=== PATIENT | female | born 1925 | race Caucasian/White ===

== ENCOUNTER 2017-05-13 16:39 | Inpatient (IN) | payer OTHER, BC ==
[~2017-05-13] VITALS: Ht 157.5 cm; Wt 43.7 kg
[~2017-05-13 16:39] MED LIST: IBAN150T7 PO; LEVO50TA6 PO; MULT-506 PO; RANI150T3 PO; SYMIN/8045 INH; VTMD PO
[2017-05-13] MEDS ORDERED: ALBUT/IPRATROP 3MG/0.5MG NEB 3 ML VIAL INH STA (17:14)
[2017-05-13] MEDS ORDERED: SODIUM CHLORIDE 0.9% 1000ML 1,000 ML IV STA ×2 (17:14→19:00)
--- NOTE | 2017-05-13 17:15 | EMERGENCY ROOM VISIT NOTE ---
History Report prepared by Avery: Jenna Torrez Under the Supervision of: Dr. Brigid Hall D.O. First contact with patient: 17:03 Chief Complaint: RESPIRATORY DISTRESS Stated Complaint: RESPIRATORY DISTRESS/ [facility] Nursing Triage Summary: Pt. arrived to exam room via EMS transport with reports of diagnosis of pneumonia, hx of COPD. Pt. with wet cough, fever, and low oxygen level at [facility]. History of Present Illness The patient is a 89 year old female who presents to the Emergency Room with complaints of sudden respiratory distress beginning shortly prior to arrival. Per nursing staff, the patient had a duoneb on route. The patient states that she uses an inhaler as needed. She also reports having a cough but that it is not productive. Pt denies headache, change in vision, fevers, chest pain, nausea , vomiting, diarrhea, pain with urination, and melena. The patient has a history of COPD. Review of paperwork from [facility]: Patient had a temperature of 101.6, was given Tylenol and started on 500 mg of Levaquin. She was also given nebulizer treatments. Also states she has a hx of congestive heart failure. Source of History: patient, nursing staff Onset: shortly prior to arrival Position: other (global) Quality: other (respiratory distress) Timing: other (sudden) Associated Symptoms: + cough, No fevers, No chest pain, No nausea, No vomiting, No melena, No diarrhea Review of Systems See HPI for pertinent positives & negatives. A total of 10 systems reviewed and were otherwise negative. Past Medical & Surgical Medical Problems: (1) COPD (chronic obstructive pulmonary disease) (2) Hyperlipidemia (3) Hypothyroidism (4) Osteoporosis Family History No significant family history Social History Smoking Status: Former Smoker Alcohol Use: none Marital Status: Housing Status: lives with significant other Occupation Status: retired Current/Historical Medications Scheduled Budesonide/Formoterol Fumarate (Symbicort 80/4.5 Inhaler), 2 PUFFS INH BID Cholecalciferol (Vitamin D3), 2,000 INTER.UNIT PO QAM Glucosamine Sulfate (Glucosamine), 500 MG PO QAM Ibandronate Sodium (Ibandronate Sodium), 150 MG PO MONTHLY Levofloxacin (Levaquin), 500 MG PO DAILY Levothyroxine Sodium (Levothyroxine Sodium), 50 MCG PO DAILY Multivitamin (Multivitamin), 1 TAB PO DAILY Scheduled PRN Acetaminophen (Tylenol), 650 MG PO Q4H PRN for Pain or Fever Albuterol Sulf (Proventil 0.083% 2.5MG/3ML), 2.5 MG INH QID PRN for PNEUMONIA Dextromethorphan-Guaifenesin ([facility] Chest Congestion Plus 5-100 mg/5Ml), 5 ML PO BID PRN for Cough Allergies Coded Allergies: Chocolate (Verified Allergy, Mild, 08/30/14) Latex1 -Allergic Contact Dermititis (Verified Allergy, Mild, 08/30/14) Peanut (Verified Allergy, Mild, 08/30/14) Doxycycline (Verified Allergy, Unknown, UNKNOWN, 08/30/14) Adhesives (Verified Adverse Reaction, Intermediate, RASH, 08/30/14) Alendronate (Verified Adverse Reaction, Intermediate, DIARRHEA, 08/30/14) Physical Exam Vital Signs Date Time Temp Pulse Resp B/P (MAP) Pulse Ox O2 Delivery O2 Flow Rate FiO2 05/13/17 20:00 96 22 103/54 96 Nasal Cannula 3.0 05/13/17 19:44 93 20 113/58 95 Nasal Cannula 2.0 05/13/17 19:09 93 26 93/59 94 Nasal Cannula 3.0 05/13/17 18:09 100 05/13/17 18:00 89 23 107/58 95 Nasal Cannula 3.0 05/13/17 16:40 95 Nasal Cannula 3.0 05/13/17 16:40 95 Nasal Cannula 3.0 05/13/17 16:40 36.9 108 29 115/66 95 Nasal Cannula 3.0 Physical Exam GENERAL: alert, well appearing, well nourished, no distress, non-toxic EYE EXAM: normal conjunctiva, PERRL and EOM's grossly intact OROPHARYNX: no exudate, no erythema, lips, buccal mucosa, and tongue normal and mucous membranes are moist NECK: supple, no nuchal rigidity, no adenopathy, non-tender LUNGS: Decreased breath sounds. Expiratory wheezes bilaterally at posterior bases. Normal chest wall mechanics HEART: Tachycardic, regular rhythm. no murmurs, S1 normal and S2 normal ABDOMEN: abdomen soft, non-tender, normo-active bowel sounds, no masses, no rebound or guarding. BACK: Back is symmetrical on inspection and there is no deformity, no midline tenderness, no CVA tenderness. SKIN: no rashes and no bruising UPPER EXTREMITIES: upper extremities are grossly normal. LOWER EXTREMITIES: No pitting edema. NEURO EXAM: Pleasantly confused, cranial nerves II-XII grossly intact, normal speech, no gross weakness of arms, no gross weakness of legs. Medical Decision & Procedures ER Provider Diagnostic Interpretation: Radiology results have been interpreted by the radiologist and reviewed by me. CHEST ONE VIEW PORTABLE HISTORY: 89 years-old Female sob acute shortness of breath COMPARISON: Chest CT 08/30/2014 and chest radiograph 08/30/2014 TECHNIQUE: Portable upright AP view of the chest FINDINGS: Cardiac silhouette is within normal limits. There is atherosclerosis of the aorta. No pneumothorax or pleural effusion. Subsegmental atelectasis or scarring involves the left lung base. Emphysema with hyperinflation redemonstrated. Mild biapical interstitial scarring. The bones are grossly intact. IMPRESSION: Emphysema and mild subsegmental left basilar atelectasis or scarring without acute cardiopulmonary process. The above report was generated using voice recognition software. It may contain grammatical, syntax or spelling errors. Electronically signed by: Satya Viera M.D. 05/13/2017 5:28 PM Dictated Date/Time: 05/13/2017 5:26 PM (CHEST FOR PE) ANGIO WITH CT DOSE: 251.97 mGy.cm HISTORY: 89 years-old Female presents with acute shortness of breath. History of emphysema TECHNIQUE: Multiple CTA images of the chest were obtained after the intravenous administration of 108 mL Optiray 320 Coronal and sagittal MIPS were obtained from the axial data set and were submitted for review. A dose lowering technique was utilized adhering to the principles of ALARA. COMPARISON: CTA chest 08/30/2014. FINDINGS: Study is moderately limited secondary to respiratory motion. CTA: Heart is normal in size without pericardial effusion. Moderate atherosclerotic plaquing of the thoracic aorta is noted with imaged great vessels patent. No aortic dissection or aneurysm identified. There is dilation of the main pulmonary artery, 3.2 cm suggesting pulmonary arterial hypertension. There is suboptimal visualization of the distal segmental and subsegmental branches secondary to respiratory motion. No central pulmonary embolus identified. There is reflux of contrast into the IVC and hepatic veins, likely secondary to technique or alternatively secondary to elevated right heart pressures. CT CHEST: Thyroid is homogeneous. No pathologic adenopathy. Trace left pleural effusion. Moderate to severe upper lobe predominant centrilobular emphysematous changes are present with areas of parenchymal scarring. Groundglass and consolidative opacities throughout the left lower lobe with associated moderate bronchial wall thickening suggests bronchopneumonia. Mild bronchial wall thickening is also seen at the level of the right lung base. Soft tissue fullness with ill-defined margins is noted involving the left hilum, 1.3 x 0.9 cm seen on image 159 of series 5 which appears new from prior study 08/30/2014. Imaged upper abdominal structures demonstrate no acute abnormality. Soft tissues are unremarkable. Bones are moderately demineralized. IMPRESSION: 1. Limited study secondary to respiratory motion as above. No evidence of acute aortic pathology or evidence of pulmonary thromboembolic disease. 2. Patchy consolidative and groundglass opacities of the left lower lobe with associated moderate left lower lobe bronchial wall thickening suggests bronchitis with bronchopneumonia and small left parapneumonic effusion. Less extensive bronchial wall thickening is seen within the right lung. 3. Moderate to severe upper lung zone predominant centrilobular emphysema. 4. Ill-defined soft tissue prominence of the left hilum as above is favored to reflect inflammatory changes secondary to the patient's bronchitis. Attention at follow-up recommended to document resolution as a small developing mass could have a similar appearance. This could also be correlated with bronchoscopy. 5. Suggested pulmonary arterial hypertension. The above report was generated using voice recognition software. It may contain grammatical, syntax or spelling errors. Electronically signed by: Satya Viera M.D. 05/13/2017 7:38 PM Dictated Date/Time: 05/13/2017 7:28 PM Laboratory Results 05/13/17 17:50 Red Blood Count 4.08, Mean Corpuscular Volume 95.3, Mean Corpuscular Hemoglobin 32.4, Mean Corpuscular Hemoglobin Concent 33.9, Mean Platelet Volume 10.1, Neutrophils (%) (Auto) 71.4, Lymphocytes (%) (Auto) 12.9, Monocytes (%) (Auto) 15.0, Eosinophils (%) (Auto) 0.1, Basophils (%) (Auto) 0.4, Neutrophils # (Auto ) 6.85, Lymphocytes # (Auto) 1.24, Monocytes # (Auto) 1.44, Eosinophils # (Auto ) 0.01, Basophils # (Auto) 0.04 05/13/17 17:50 Test 05/13/17 17:50 05/13/17 17:58 White Blood Count 9.60 K/uL (4.8-10.8) Red Blood Count 4.08 M/uL (4.2-5.4) Hemoglobin 13.2 g/dL (12.0-16.0) Hematocrit 38.9 % (37-47) Mean Corpuscular Volume 95.3 fL (80-100) Mean Corpuscular Hemoglobin 32.4 pg (25-34) Mean Corpuscular Hemoglobin Concent 33.9 g/dl (32-36) Platelet Count 194 K/uL (130-400) Mean Platelet Volume 10.1 fL (7.4-10.4) Neutrophils (%) (Auto) 71.4 % Lymphocytes (%) (Auto) 12.9 % Monocytes (%) (Auto) 15.0 % Eosinophils (%) (Auto) 0.1 % Basophils (%) (Auto) 0.4 % Neutrophils # (Auto) 6.85 K/uL (1.4-6.5) Lymphocytes # (Auto) 1.24 K/uL (1.2-3.4) Monocytes # (Auto) 1.44 K/uL (0.11-0.59) Eosinophils # (Auto) 0.01 K/uL (0-0.5) Basophils # (Auto) 0.04 K/uL (0-0.2) RDW Standard Deviation 50.0 fL (36.4-46.3) RDW Coefficient of Variation 14.2 % (11.5-14.5) Immature Granulocyte % (Auto) 0.2 % Immature Granulocyte # (Auto) 0.02 K/uL (0.00-0.02) Prothrombin Time 11.3 SECONDS (9.0-12.0) Prothromb Time International Ratio 1.1 (0.9-1.1) Activated Partial Thromboplast Time 32.2 SECONDS (21.0-31.0) Partial Thromboplastin Ratio 1.2 Anion Gap 7.0 mmol/L (3-11) Est Creatinine Clear Calc Drug Dose 37.8 ml/min Estimated GFR () 87.5 Estimated GFR (Non- 75.5 BUN/Creatinine Ratio 24.4 (10-20) Calcium Level 8.4 mg/dl (8.5-10.1) Magnesium Level 2.1 mg/dl (1.8-2.4) Total Bilirubin 0.3 mg/dl (0.2-1) Aspartate Amino Transf (AST/SGOT) 33 U/L (15-37) Alanine Aminotransferase (ALT/SGPT) 26 U/L (12-78) Alkaline Phosphatase 51 U/L (45-117) Pro-B-Type Natriuretic Peptide 5968 pg/ml (0-1800) Total Protein 6.2 gm/dl (6.4-8.2) Albumin 2.7 gm/dl (3.4-5.0) Globulin 3.5 gm/dl (2.5-4.0) Albumin/Globulin Ratio 0.8 (0.9-2) Thyroid Stimulating Hormone (TSH) 0.938 uIu/ml (0.300-4.500) Bedside Lactic Acid Venous 1.09 mmol/L (0.90-1.70) Laboratory results per my review. Medications Administered Medications (Trade) Dose Ordered Sig/Matthew Route Start Time Stop Time Status Last Admin Dose Admin Albuterol/ Ipratropium (Duoneb) 3 ml NOW STAT INH 05/13/17 17:14 05/13/17 17:18 DC 05/13/17 18:02 3 ML Sodium Chloride 1,000 ml @ 999 mls/hr Q1H1M STAT IV 05/13/17 17:14 05/13/17 18:14 DC 05/13/17 18:02 999 MLS/HR Methylprednisolone Sodium Succinate (Solu-Medrol IV) 125 mg NOW STAT IV 05/13/17 17:24 05/13/17 17:26 DC 05/13/17 18:02 125 MG Sodium Chloride 1,000 ml @ 250 mls/hr Q4H STAT IV 05/13/17 19:00 05/13/17 22:59 DC 05/13/17 19:39 250 MLS/HR Aspirin (Ecotrin Tab) 325 mg NOW STAT PO 05/13/17 19:03 05/13/17 19:04 DC 05/13/17 19:39 325 MG Vancomycin HCl (Vancomycin 1gm/ 270ml Nss) 1 gm NOW STAT IV 05/13/17 19:48 05/13/17 19:50 DC 05/13/17 20:20 1 GM Cefepime HCl 2000 mg/Dextrose 122.6 ml @ 200 mls/hr NOW STAT IV 05/13/17 19:48 05/13/17 20:24 DC 05/13/17 20:20 200 MLS/HR ECG Indication: SOB/dyspnea Rate (beats per minute): 103 Rhythm: sinus tachycardia Findings: LBBB, no acute ischemic change, other (normal axis) ED Course 1706: The patient was evaluated in room B10. A complete history and physical exam was performed. 1713: Ordered Sodium Chloride 1,000 ml @ 999 mls/hr IV, Duoneb 3 ml INH. 1899: Ordered Sodium Chloride 1,000 ml @ 250 mls/hr IV. 1902: Ordered Aspirin 325 mg PO. 1904: The patient has an elevated troponin. 1947: Ordered Cefepime HCl 2,000 ml/Dextrose 122.6 ml @ 200 mls/hr IV, Vancomycin HCl 1 gm IV. 1999: Upon reevaluation, the patient is resting. I discussed the findings and the treatment plan with the patient. She expresses agreement and understanding. I spoke with Dr. Gross of the [facility] Hospitalist Service. She will be evaluated for further management. Medical Decision Differential diagnosis: Etiologies such as infections, reactive airway disease, pneumonia, pneumothorax , COPD, CHF, cardiac ischemia, pulmonary embolism, musculoskeletal, gastrointestinal, as well as others were entertained. Pt likely with evolving sepsis due to pneumonia. Doubt primary ACS, likely elevated trop due to stress of tachycardia or infection. LBBB old, no evidence for Scar[place]ossa criteria. Pt with no complaints of sob or CP here. Pt covered for health care associated pneumonia given [place] residence. Likely worsening COPD also. Pt initially hypotensive but responded to IVF and held BP after that. Given 2 L IVF. Pt placed on home oxygen as initially hypoxic for EMS. Concern over cognitive status of pt as [place] reported to EMS hx of mild dementia, no other family at bedside. Medication Reconcilliation Current Medication List: was personally reviewed by me Blood Pressure Screening Patient's blood pressure: Low blood pressure Consults Time Called: 1944 Consulting Physician: Dr. Gross-[facility] Returned Call: 1999 I reviewed the patient's case with Dr. Gross. He will evaluate the patient for further management. Impression Primary Impression: Pneumonia Additional Impressions: Sepsis Elevated troponin Critical Care I have personally spent 35 minutes of critical care time in the direct management of this patient. This includes bedside care, interpretation of diagnostic studies, and testing, discussion with consultants, patient, and family members, and other required patient management activities. This 35 minutes is in excess of all separately billable procedures. Scribe Attestation The scribe's documentation has been prepared under my direction and personally reviewed by me in its entirety. I confirm that the note above accurately reflects all work, treatment, procedures, and medical decision making performed by me. Departure Information Dispostion Being Evaluated By Hospitalist Referrals Tyler Lee (PCP) Patient Instructions Asthma - [facility], COPD - [facility], Croup - [facility], My [facility] Health Problem Qualifiers Primary Impression: Pneumonia Pneumonia type: due to unspecified organism Laterality: left Lung location : lower lobe of lung Qualified Codes: J18.1 - Lobar pneumonia, unspecified organism Additional Impressions: Sepsis Sepsis type: sepsis due to unspecified organism Qualified Codes: A41.9 - Sepsis, unspecified organism
[2017-05-13] MEDS ORDERED: GLUC500C4 PO (17:19)
[2017-05-13] MEDS ORDERED: ACET-1311 PO (17:19)
[2017-05-13] MEDS ORDERED: CHOL2000 PO (17:19)
[2017-05-13] MEDS ORDERED: [UNRECOGNIZED DRUG - CODE] PO (17:19)
[2017-05-13] MEDS ORDERED: ALBINS/ INH (17:19)
[2017-05-13] MEDS ORDERED: LEVO-366 PO (17:19)
[2017-05-13] MEDS ORDERED: METHYLPREDNISOLONE 125 MG VIAL IV STA (17:24)
--- NOTE | 2017-05-13 17:29 | DIAGNOSTIC IMAGING REPORT ---
CHEST ONE VIEW PORTABLE HISTORY: 89 years-old Female sob acute shortness of breath COMPARISON: Chest CT 08/30/2014 and chest radiograph 08/30/2014 TECHNIQUE: Portable upright AP view of the chest FINDINGS: Cardiac silhouette is within normal limits. There is atherosclerosis of the aorta. No pneumothorax or pleural effusion. Subsegmental atelectasis or scarring involves the left lung base. Emphysema with hyperinflation redemonstrated. Mild biapical interstitial scarring. The bones are grossly intact. IMPRESSION: Emphysema and mild subsegmental left basilar atelectasis or scarring without acute cardiopulmonary process. The above report was generated using voice recognition software. It may contain grammatical, syntax or spelling errors. Electronically signed by: Satya Viera M.D. 05/13/2017 5:28 PM Dictated Date/Time: 05/13/2017 5:26 PM
[2017-05-13 18:04] LABS: BASO % 0.4 %; BASO ABS # 0.04 K/uL (0-0.2); COMPLETE YES; EOS % 0.1 %; HEMATOCRIT 38.9 % (37-47); IG% 0.2 %; LYMPH % 12.9 %; LYMPH ABS # 1.24 K/uL (1.2-3.4); MEAN CELL VOLUME 95.3 fL (80-100); MEAN CORPUSCULAR HEMOGLOBIN 32.4 pg (25-34); MEAN CORPUSCULAR HGB CONC 33.9 g/dl (32-36); MEAN PLATELET VOLUME 10.1 fL (7.4-10.4); NEUT % 71.4 %; PLATELET COUNT 194 K/uL (130-400); RED BLOOD COUNT 4.08 M/uL (4.2-5.4)
[2017-05-13 18:13] LABS: INR 1.1 (0.9-1.1); PROTHROMBIN TIME (PATIENT) 11.3 SECONDS (9.0-12.0)
[2017-05-13 18:34] LABS: BUN/CREATININE RATIO 24.4 (10-20); CALCIUM 8.4 mg/dl (8.5-10.1); CREATININE 0.71 mg/dl (0.60-1.20); MAGNESIUM 2.1 mg/dl (1.8-2.4); POTASSIUM 3.9 mmol/L (3.5-5.1)
[2017-05-13 18:55] LABS: ALB/GLOB RATIO 0.8 (0.9-2); THYROID STIMULATING HORMONE 0.938 uIu/ml (0.300-4.500)
[2017-05-13] MEDS ORDERED: ASPIRIN 325 MG ECTAB PO STA (19:03)
[2017-05-13] MEDS ORDERED: OPTIRAY 320 IV PRN (19:15)
--- NOTE | 2017-05-13 19:39 | DIAGNOSTIC IMAGING REPORT ---
(CHEST FOR PE) ANGIO WITH CT DOSE: 251.97 mGy.cm HISTORY: 89 years-old Female presents with acute shortness of breath. History of emphysema TECHNIQUE: Multiple CTA images of the chest were obtained after the intravenous administration of 108 mL Optiray 320 Coronal and sagittal MIPS were obtained from the axial data set and were submitted for review. A dose lowering technique was utilized adhering to the principles of ALARA. COMPARISON: CTA chest 08/30/2014. FINDINGS: Study is moderately limited secondary to respiratory motion. CTA: Heart is normal in size without pericardial effusion. Moderate atherosclerotic plaquing of the thoracic aorta is noted with imaged great vessels patent. No aortic dissection or aneurysm identified. There is dilation of the main pulmonary artery, 3.2 cm suggesting pulmonary arterial hypertension. There is suboptimal visualization of the distal segmental and subsegmental branches secondary to respiratory motion. No central pulmonary embolus identified. There is reflux of contrast into the IVC and hepatic veins, likely secondary to technique or alternatively secondary to elevated right heart pressures. CT CHEST: Thyroid is homogeneous. No pathologic adenopathy. Trace left pleural effusion. Moderate to severe upper lobe predominant centrilobular emphysematous changes are present with areas of parenchymal scarring. Groundglass and consolidative opacities throughout the left lower lobe with associated moderate bronchial wall thickening suggests bronchopneumonia. Mild bronchial wall thickening is also seen at the level of the right lung base. Soft tissue fullness with ill-defined margins is noted involving the left hilum, 1.3 x 0.9 cm seen on image 159 of series 5 which appears new from prior study 08/30/2014. Imaged upper abdominal structures demonstrate no acute abnormality. Soft tissues are unremarkable. Bones are moderately demineralized. IMPRESSION: 1. Limited study secondary to respiratory motion as above. No evidence of acute aortic pathology or evidence of pulmonary thromboembolic disease. 2. Patchy consolidative and groundglass opacities of the left lower lobe with associated moderate left lower lobe bronchial wall thickening suggests bronchitis with bronchopneumonia and small left parapneumonic effusion. Less extensive bronchial wall thickening is seen within the right lung. 3. Moderate to severe upper lung zone predominant centrilobular emphysema. 4. Ill-defined soft tissue prominence of the left hilum as above is favored to reflect inflammatory changes secondary to the patient's bronchitis. Attention at follow-up recommended to document resolution as a small developing mass could have a similar appearance. This could also be correlated with bronchoscopy. 5. Suggested pulmonary arterial hypertension. The above report was generated using voice recognition software. It may contain grammatical, syntax or spelling errors. Electronically signed by: Satya Viera M.D. 05/13/2017 7:38 PM Dictated Date/Time: 05/13/2017 7:28 PM
[2017-05-13] MEDS ORDERED: VANCOMYCIN 1GM/270ML NSS IV STA (19:48)
[2017-05-13] MEDS ORDERED: CEFEPIME IV 2,000 MG in DEXTROSE 5% 100ML 100 ML IV STA (19:48)
[2017-05-13] MEDS ORDERED: ACETAMINOPHEN 325 MG TAB PO PRN ×2 (20:30→20:45)
[2017-05-13] MEDS ORDERED: MAGNESIUM HYDROXIDE SUSP 30 ML UDC PO PRN (20:30)
[2017-05-13] MEDS ORDERED: POLYETHYLENE (MIRALAX) 17 GM PACK PO PRN ×2 (20:30→21:00)
[2017-05-13] MEDS ORDERED: ONDANSETRON INJ 2 MG/ML 2 ML VIAL IV PRN (20:30)
[2017-05-13] MEDS ORDERED: ALUMINUM/MAGNESIUM/SIMETH (MAALOX MAX) 30 ML UDC PO PRN (20:30)
[2017-05-13] MEDS ORDERED: NITROGLYCERIN 0.4 MG SL PER TAB CHARGE SL PRN (20:45)
[2017-05-13] MEDS ORDERED: ALBUTEROL 0.083% NEBU SOLN 3 ML VIAL INH PRN (20:45)
[2017-05-13] MEDS ORDERED: GUAIFENESIN/DEXTROM SYRUP 100MG/10MG 5ML UDC PO PRN (20:45)
[2017-05-13] MEDS: BUDESONIDE/FORMOTEROL FUMARATE 80/4.5 60 PUFFS/INHALER INH SCH (21:00)
[2017-05-13] MEDS ORDERED: ENOXAPARIN 30 MG/0.3 ML SYR SQ SCH (21:00)
[2017-05-13 21:07] LABS: PARTIAL THROMBOPLASTIN RATIO 1.2
--- NOTE | 2017-05-13 21:09 | History and Physical ---
History & Physical Date & Time of Service: May 13, 2017 at 21:05 Chief Complaint: Respiratory Distress/ Rosa Primary Care Physician: Tyler Lee History of Present Illness Source: patient, hospital records The patient is an 89-year-old female with past medical history of COPD, hypothyroidism, hyperlipidemia, question diagnosis of CHF, chronic left bundle branch block, and osteoporosis who presents the emergency department with cough. Patient is somewhat poor historian and offers little information, the states that currently she feels well. She states that this morning she was having a cough, but otherwise denied shortness of breath, wheezing. She denies chest pain, palpitations, lightheadedness, dizziness, orthopnea or lower extremity edema. Collateral history is obtained from her , who states that she's been having a cough is been worse for the past 2 days, though it is been nonproductive. Otherwise she states she has not had fevers, chills, sweats. She states her appetite has been good and states that she is hungry right now. The patient is CT scan done in the emergency room which showed a left lung consolidation, without any evidence of overt congestive failure. In addition her troponin was elevated at 1.030. An EKG on admission at approximately [address] elevation in the anterior leads. A repeat EKG at [address] elevation with T wave inversion in the anterior leads. Past Medical/Surgical History Medical Problems: (1) COPD (chronic obstructive pulmonary disease) Status: Chronic CHF (2) Hyperlipidemia Status: Chronic (3) Hypothyroidism Status: Chronic (4) Osteoporosis Status: Chronic Family History No significant family history Social History Smoking Status: Former Smoker Smokeless Tobacco Use: No Alcohol Use: none Drug Use: none Marital Status: Housing status: fpc ([facility] with ) Occupational Status: retired Immunizations History of Influenza Vaccine: Yes Influenza Vaccine Date: May 20, 2011 History of Tetanus Vaccine?: Unknown History of Pneumococcal: Unknown History of Hepatitis B Vaccine: Unknown Multi-Drug Resistant Organisms History of MDRO: No Allergies Coded Allergies: Chocolate (Verified Allergy, Mild, 08/30/14) Latex1 -Allergic Contact Dermititis (Verified Allergy, Mild, 08/30/14) Peanut (Verified Allergy, Mild, 08/30/14) Doxycycline (Verified Allergy, Unknown, UNKNOWN, 08/30/14) Adhesives (Verified Adverse Reaction, Intermediate, RASH, 08/30/14) Alendronate (Verified Adverse Reaction, Intermediate, DIARRHEA, 08/30/14) Home Medications Scheduled Budesonide/Formoterol Fumarate (Symbicort 80/4.5 Inhaler), 2 PUFFS INH BID Cholecalciferol (Vitamin D3), 2,000 INTER.UNIT PO QAM Glucosamine Sulfate (Glucosamine), 500 MG PO QAM Ibandronate Sodium (Ibandronate Sodium), 150 MG PO MONTHLY Levofloxacin (Levaquin), 500 MG PO DAILY Levothyroxine Sodium (Levothyroxine Sodium), 50 MCG PO DAILY Multivitamin (Multivitamin), 1 TAB PO DAILY Scheduled PRN Acetaminophen (Tylenol), 650 MG PO Q4H PRN for Pain or Fever Albuterol Sulf (Proventil 0.083% 2.5MG/3ML), 2.5 MG INH QID PRN for PNEUMONIA Dextromethorphan-Guaifenesin ([facility] Chest Congestion Plus 5-100 mg/5Ml), 5 ML PO BID PRN for Cough Review of Systems A 10 point review of systems was negative unless stated above. Physical Exam Vital Signs Date Time Temp Pulse Resp B/P (MAP) Pulse Ox O2 Delivery O2 Flow Rate FiO2 05/13/17 20:00 96 22 103/54 96 Nasal Cannula 3.0 05/13/17 19:44 93 20 113/58 95 Nasal Cannula 2.0 05/13/17 19:09 93 26 93/59 94 Nasal Cannula 3.0 05/13/17 18:09 100 05/13/17 18:00 89 23 107/58 95 Nasal Cannula 3.0 05/13/17 16:40 95 Nasal Cannula 3.0 05/13/17 16:40 95 Nasal Cannula 3.0 05/13/17 16:40 36.9 108 29 115/66 95 Nasal Cannula 3.0 General Appearance: WD/WN, no apparent distress Head: normocephalic, atraumatic Eyes: normal inspection, EOMI ENT: hearing grossly normal, pharynx normal Neck: supple, no adenopathy, no JVD Respiratory/Chest: lungs clear, no respiratory distress Cardiovascular: regular rate, rhythm, no gallop, no murmur Abdomen/GI: normal bowel sounds, non tender, soft Back: no CVA tenderness, no muscle spasm Extremities/Musculoskelatal: no calf tenderness, no pedal edema Neurologic/Psych: alert, normal mood/affect, + pertinent finding (alert and oriented to person and place) Skin: normal color, warm/dry Lymphatic: no adenopathy Diagnostics Laboratory Results Results Past 24 Hours Test 05/13/17 17:50 05/13/17 17:58 05/13/17 21:03 Range/Units White Blood Count 9.60 4.8-10.8 K/uL Red Blood Count 4.08 4.2-5.4 M/uL Hemoglobin 13.2 12.0-16.0 g/dL Hematocrit 38.9 37-47 % Mean Corpuscular Volume 95.3 80-100 fL Mean Corpuscular Hemoglobin 32.4 25-34 pg Mean Corpuscular Hemoglobin Concent 33.9 32-36 g/dl Platelet Count 194 130-400 K/uL Mean Platelet Volume 10.1 7.4-10.4 fL Neutrophils (%) (Auto) 71.4 % Lymphocytes (%) (Auto) 12.9 % Monocytes (%) (Auto) 15.0 % Eosinophils (%) (Auto) 0.1 % Basophils (%) (Auto) 0.4 % Neutrophils # (Auto) 6.85 1.4-6.5 K/uL Lymphocytes # (Auto) 1.24 1.2-3.4 K/uL Monocytes # (Auto) 1.44 0.11-0.59 K/uL Eosinophils # (Auto) 0.01 0-0.5 K/uL Basophils # (Auto) 0.04 0-0.2 K/uL RDW Standard Deviation 50.0 36.4-46.3 fL RDW Coefficient of Variation 14.2 11.5-14.5 % Immature Granulocyte % (Auto) 0.2 % Immature Granulocyte # (Auto) 0.02 0.00-0.02 K/uL Prothrombin Time 11.3 9.0-12.0 SECONDS Prothromb Time International Ratio 1.1 0.9-1.1 Sodium Level 134 136-145 mmol/L Potassium Level 3.9 3.5-5.1 mmol/L Chloride Level 102 98-107 mmol/L Carbon Dioxide Level 25 21-32 mmol/L Anion Gap 7.0 3-11 mmol/L Blood Urea Nitrogen 17 7-18 mg/dl Creatinine 0.71 0.60-1.20 mg/dl Est Creatinine Clear Calc Drug Dose 37.8 ml/min Estimated GFR () 87.5 Estimated GFR (Non- 75.5 BUN/Creatinine Ratio 24.4 10-20 Random Glucose 131 70-99 mg/dl Calcium Level 8.4 8.5-10.1 mg/dl Magnesium Level 2.1 1.8-2.4 mg/dl Total Bilirubin 0.3 0.2-1 mg/dl Aspartate Amino Transf (AST/SGOT) 33 15-37 U/L Alanine Aminotransferase (ALT/SGPT) 26 12-78 U/L Alkaline Phosphatase 51 45-117 U/L Troponin I 1.030 0-0.045 ng/ml Pro-B-Type Natriuretic Peptide 5968 0-1800 pg/ml Total Protein 6.2 6.4-8.2 gm/dl Albumin 2.7 3.4-5.0 gm/dl Globulin 3.5 2.5-4.0 gm/dl Albumin/Globulin Ratio 0.8 0.9-2 Thyroid Stimulating Hormone (TSH) 0.938 0.300-4.500 uIu/ml Bedside Lactic Acid Venous 1.09 0.90-1.70 mmol/L Microbiology Results 05/13/17 Blood Culture, Received Pending 05/13/17 Blood Culture, Received Pending EKG Sinus tachycardia Left bundle branch block Abnormal ECG When compared with ECG of 01-SEP-2014 07:18, ST elevation now present in Anterior leads Confirmed by ZOLTAN REED ([id number]) on 05/13/2017 9:22:24 PM Impression Assessment and Plan 89-year-old female who presents with cough for the past 2 days, with pneumonia on CT scan. Incidentally troponin was elevated and she has new anterior ST elevations, though at no point she ever complained of having chest pain. EKG reviewed; ST elevated noted at 1656 EKG and troponin elevated on arrival. EKG was repeated at 21:22 noting some progressive T wave inversion in V2-V4. Case was discussed with Cardiology at 22:00 that evolving changes are concerning and to discuss with patient if she would want catheter before calling heart alert. I called her son Benji, who states that while she occasionally forgetful, she is usually alert and able to make her own decision. I noted to him of the evolving VT and decision she faced between catheterization vs medical management. He re-iterated her DNR status and stated that if she did not want a catheterization, not to pursue it. I sat down with the patient to discuss the option of cardiac catheterization versus conservative management with medication. The patient was adamant on not going for cardiac catheterization stating "I'm 89 year old, I've had a good life ". She requested that before any final decision was made that she wanted to speak to her to consult with him further. There was some question regarding her capacity given that she volunteers very little information about her symptoms when I was trying to elicit a history. Therefore I enlisted the assistance of her son as well as her . I spoke with her son on the phone , and he stated that she has good mentation at baseline, and is able to make decisions for herself. I then prescribed and call to her , Julio Adame, who spoke with the patient further. After discussion with her he felt that she could make her own decisions and would respect her decision to pursue medical management alone. I reiterated to the patient that medical management along is likely to result in further damage to the heart which includes in hospital , but the patient continued to insist for medical management. Our plan for her is as follows: Anterior STEMI - ASA 324 mg, given in the emergency department; continue ASA 81 mg daily - Sublingual nitroglycerin when necessary; hold off on topical nitroglycerin as patient presents hypotensive state - Beta nataliia and french inhibitors culture indicated at this time due to low blood pressure on arrival - EKG with chest pain and every morning 2 - Monitor in telemetry - Echocardiogram in the morning - Consult cardiology Questionable diagnosis of congestive heart failure - Does note in her problem was that she has CHF - However I reviewed her echocardiogram from 2015 which shows a normal EF, without any diastolic dysfunction - We will be repeating the echocardiogram in the morning Chronic LBBB - Daily EKGs COPD - Continue albuterol - Continue Symbicort - DuoNeb's when necessary for shortness of breath or wheezing - I'm not impressed at this time that she has acute exacerbation Left Lobar PNA - The patient was hypotensive on arrival, was responsive to fluids; she is currently normotensive - Inhaler/nebulizer treatment as above - The patient is hypoxic, and required supplemental oxygen; she has no baseline oxygen requirement - Vancomycin and Zosyn given initial hypotension, and borderline septic picture - We wean oxygen as tolerated Hypothyroidism - Continue Levothyroxine Mild Dementia - With assistance of son and , patient deemed to have competence, and it is stated by the that she would not want to have a cardiac catheterization was her choice HLD - Atorvastatin as above Attending Addendum: I have physically seen and examined this patient, have directed the resident's medical activities, and agree with the H&P as noted above with the following exceptions as noted. The patient is awake, and alert intermittently appears confused, normocephalic and atraumatic, lying in bed and in no acute distress. HEENT--PERRL, EOMI, mucous membranes and oropharynx normal. Neck--supple, no JVD or bruits, thyroid normal, trachea midline, no adenopathy. Heart--normal S1 and S2, no extra beats, no murmurs, rubs or gallops. Lungs--few coarse breath sounds throughout, no respiratory distress, no accessory muscle use. Abdomen--normal bowel sounds and soft, nontender and nondistended, no hernias or masses, no organomegaly. Extremities--no cyanosis, clubbing or edema. There are good distal pulses b/l. Dermatologic--normal skin turgor, normal color, warm and dry, no abnormal lymph nodes, no rash. Neurologic--cranial nerves II through XII grossly intact. Rheumatologic--normal range of motion, nontender, muscles and joints. Psychiatric--normal affect. Assessment and Plan: Anterior septal STEMI/ST elevations in V1 through V4/left bundle branch block-- Case was discussed with cardiology, who agreed with the diagnosis. There were long discussions with the patient, the patient's and son, and ultimately the patient decided on conservative therapy. The patient will be admitted to telemetry for serial cardiac enzymes, cardiac rhythm monitoring and a 2-D echocardiogram with Dopplers. Pressures too low to tolerate beta blockers or Nitropaste. Continue aspirin 81 mg by mouth daily. Next Pneumonia-- Vancomycin IV and Zosyn IV. Duonebs every 4 hours while awake and every 2 hours when necessary. He is a cannula 2 L of oxygen titrated per protocol. Next Dementia-- Patient's son and agree with the patient's decision to pursue conservative therapy. Hypothyroidism-- Continue levothyroxine sodium 50 g by mouth daily. Level of Care Telemetry Advanced Directives Existing Advance Directive: Yes Existing Living Will: Yes Existing Power of Plastics Technician: Yes Resuscitation Status DO NOT RESUSCITATE VTE Prophylaxis VTE Risk Assessment Done? Y/N: Yes Risk Level: Moderate Given or contraindicated: Other Anticoagulation (heparin infusion) Social Service Consult Lives in Prison
[2017-05-13] MEDS ORDERED: PIPERACILL/TAZOBAC CONSULT ACTIVE PRN (21:30)
[2017-05-13] MEDS ORDERED: VANCOMYCIN CONSULT ACTIVE PRN (21:30)
--- NOTE | 2017-05-13 21:52 | Pharmacy Progress Note ---
Pharmacy Abx Initial Consult Date of Service May 13, 2017. Pharmacy Dosing Scope Date of Consult: 05/13/17 Consultation requested by: Dr. Gross Pharmacy is consulted to initiate vancomycin and Zosyn IV dosing therapy, order appropriate labs and adjust drug dose/frequency. Subjective The patient is a 89 year old female admitted on 05/13/17 Objective Height (Feet): 5 Height (Inches): 1.00 Weight (Kilograms): 44.600 Vital Signs (Past 12Hrs) Vital Signs Past 12 Hours Date Time Temp Pulse Resp B/P (MAP) Pulse Ox O2 Delivery O2 Flow Rate FiO2 05/13/17 21:30 82 18 109/70 96 Nasal Cannula 3.0 05/13/17 20:00 96 22 103/54 96 Nasal Cannula 3.0 05/13/17 19:44 93 20 113/58 95 Nasal Cannula 2.0 05/13/17 19:09 93 26 93/59 94 Nasal Cannula 3.0 05/13/17 18:09 100 05/13/17 18:00 89 23 107/58 95 Nasal Cannula 3.0 05/13/17 16:40 95 Nasal Cannula 3.0 05/13/17 16:40 95 Nasal Cannula 3.0 05/13/17 16:40 36.9 108 29 115/66 95 Nasal Cannula 3.0 Lab Results (24Hrs) Laboratory Tests (24 Hours) Test 05/13/17 17:50 White Blood Count 9.60 K/uL (4.8-10.8) Red Blood Count 4.08 M/uL (4.2-5.4) L Hemoglobin 13.2 g/dL (12.0-16.0) Hematocrit 38.9 % (37-47) Mean Corpuscular Volume 95.3 fL (80-100) Mean Corpuscular Hemoglobin 32.4 pg (25-34) Mean Corpuscular Hemoglobin Concent 33.9 g/dl (32-36) Platelet Count 194 K/uL (130-400) Mean Platelet Volume 10.1 fL (7.4-10.4) Neutrophils (%) (Auto) 71.4 % Lymphocytes (%) (Auto) 12.9 % Monocytes (%) (Auto) 15.0 % Eosinophils (%) (Auto) 0.1 % Basophils (%) (Auto) 0.4 % Neutrophils # (Auto) 6.85 K/uL (1.4-6.5) H Lymphocytes # (Auto) 1.24 K/uL (1.2-3.4) Monocytes # (Auto) 1.44 K/uL (0.11-0.59) H Eosinophils # (Auto) 0.01 K/uL (0-0.5) Basophils # (Auto) 0.04 K/uL (0-0.2) Micro Results Date/Time Source Procedure Growth Status 05/13/17 18:30 Blood Blood Culture Pending Received 05/13/17 17:50 Blood Blood Culture Pending Received Risk Factors for Resistance * Resident in a detention or extended-care facility Assessment & Plan Assessment 89 year old female admitted from [facility] for pneumonia, to be initiated on vancomycin and Zosyn. Pertinent PMH includes COPD. Plan Vancomycin IV * Est PK parameters: Vd 0.7 L/kg, Santos 0.036, t1/2 19.3 hrs * Loading dose: 1000 mg (22.4 mg/kg) - given in the ER already * Maintenance dose: 750 mg IV (17 mg/kg) every 24 hours * Goal trough level for pneumonia : 15 to 20 mcg/mL * Trough level ordered for 05/15/17 prior to the 3rd dose - THIS WILL BE PRIOR TO STEADY STATE BUT NEED TO EVALUATE SOONER DUE TO LOW BODY WEIGHT/ELDERLY Piperacillin/tazobactam * 3.375 g bolus administered over 30 minutes, then 3.375 g IV extended infusion every 8 hours for CrCl greater than 20 mL/min Pharmacy will continue to follow and will adjust dose/frequency as necessary. Thank you.
[2017-05-13] MEDS ORDERED: HEPARIN SOD 5000 UNIT/0.5 ML CARP ONE (22:04)
[2017-05-13] MEDS ORDERED: HEPARIN 25000 UNIT/500 ML D5W ONE (22:04)
[2017-05-13] MEDS: HEPARIN 25,000 UNIT/500ML D5W 500 ML IV PRN (22:23)
[2017-05-14] VITALS (8 sets, daily range): BP systolic 101–124; BP diastolic 60–73; PULSE 63–97; TEMP 36.5–36.7; O2SAT 94–98; Ht 157.5 cm; Wt 43.7 kg
[2017-05-14] MEDS ORDERED: PIPERACILL/TAZOBAC IV 3.375 GM in DEXTROSE 5% 100ML 100 ML IV SCH ×2 (01:30→06:00)
[2017-05-14] MEDS ORDERED: INFLUENZA VACCINE HIGH DOSE 65+ 0.5 ML SYR IM. ONE (04:15)
[2017-05-14] MEDS ORDERED: INFLUENZA ADMINISTRATION CHARGE ONE (04:15)
[2017-05-14 04:39] LABS: PARTIAL THROMBOPLASTIN RATIO 4.5
[2017-05-14 04:42] LABS: CREATININE 0.76 mg/dl (0.60-1.20)
[2017-05-14] MEDS: LEVOTHYROXINE 50 MCG TAB PO SCH (06:02)
[2017-05-14] MEDS: ALBUT/IPRATROP 3MG/0.5MG NEB 3 ML VIAL INH SCH ×4 (07:06→19:31)
--- NOTE | 2017-05-14 07:12 | Family Medicine Progress Note ---
Progress Note Date of Service May 14, 2017. Subjective Pt evaluation today including: conversation w/ patient, physical exam, chart review, lab review The patient was seen and examined at bedside. No acute overnight events. Tele showed sinus rhythm in the 80s-110s. Patient is resting comfortably in bed. Denies having any pain. Eating and urinating well. Demented - this is the baseline according to the sign out I received. Plan of care was described to the patient and all questions were answered. Constitutional: No fever, No chills, No sweats Eyes: No worsening of vision ENT: No hearing loss Respiratory: No cough, No sputum, No wheezing, No shortness of breath Cardiovascular: No chest pain Abdomen: No pain, No nausea, No vomiting, No diarrhea Female : No dysuria Psychiatric: No depression symptoms Objective Physical Exam General Appearance: WD/WN, no apparent distress Eyes: PERRL Neck: supple Respiratory/Chest: chest non-tender, lungs clear, no respiratory distress, no accessory muscle use, + pertinent finding (decreased breath sounds bilaterally, slight crackles in LLL) Cardiovascular: regular rate, rhythm, no edema, no gallop, no JVD, no murmur Abdomen: normal bowel sounds, non tender, soft, no organomegaly Extremities: normal range of motion Neurologic/Psychiatric: dock grader II-XII nml as tested, no motor/sensory deficits, alert, + pertinent finding (patient is not oriented to year (1959) or place ( lives just down the road)) Assessment and Plan 89F who presents with cough for the past 2 days, with pneumonia on CT scan. Trops peaked at 1 and are downtrending. Pt never had chest pain. We are treating Pneumo with Levofloxacin. Pt was downgraded from telemetry on hospital day #1. Per cardiology, medical management at present. Pt is unlikely to tolerate BB due to blood pressure and pulse. We are continuing a heparin drip for 48hours. NSTEMI / demand ischemia - Asymptomatic, trops downtrending. - Continue ASA 81 mg daily - Sublingual nitroglycerin PRN. - cannot tolerate BB due to BP and underlying COPD. - Beta nataliia and french inhibitors culture indicated at this time due to low blood pressure on arrival - Pt refused echo. Questionable diagnosis of congestive heart failure - Per cards, pt unlikely in CHF. - BNP was 6000. echo from 2014 shows normal EF. - Pt refused echo. Chronic LBBB - Daily EKGs COPD - No wheezing on exam, lungs have decreased breath sounds. - Continue albuterol - Continue Symbicort - DuoNeb's when necessary for shortness of breath or wheezing Left Lobar PNA - The patient was hypotensive on arrival, was responsive to fluids; she is currently normotensive - Inhaler/nebulizer treatment as above - Pt has been weaned to room air. - Levofloxacin starting today. - s/p Vancomycin and Zosyn Day #1. - We wean oxygen as tolerated Hypothyroidism - Continue Levothyroxine Mild Dementia - With assistance of son and , patient deemed to have competence, and it is stated by the that she would not want to have a cardiac catheterization was her choice - Pt lives at [facility] with . HLD - Atorvastatin as above DNR Resident Physician Supervision Note: I interviewed and examined the patient. Discussed with Dr. Dominguez and agree with findings and plan as documented in the note. Any exceptions or clarifications are listed here: on review of old EKGs did not appear that she's had STEMI- LBBB is old, and with LBBB ST segments fairly uninterpretable Documented By: Bean Cervantes feeling OK still needed O2 vitals noted nad breathing unlabored no pallor or icterus CT reviewed EKGs reviewed CAP w hypoxic respiratory failure -improving -stable for med surg -possibly home in 24-48hrs elevated troponin -fortunately w hindsight, initial concern on STEMI unfounded - see above, LBBB chronic, ST segments fairly uninterpretable -demand ischemia from above, stable, minor otherwise above Resident Involvement: Resident Care Provided Care Provided: Adult Hospital Medicine
[2017-05-14] MEDS: MULTIVITAMIN TAB PO SCH (08:26)
[2017-05-14] MEDS: BUDESONIDE/FORMOTEROL FUMARATE 80/4.5 60 PUFFS/INHALER INH SCH ×2 (08:27→20:00)
[2017-05-14] MEDS: GLUCOSAMINE SULFATE 500 MG CAP PO SCH (08:27)
[2017-05-14] MEDS: CHOLECALCIFEROL 1000 INTER.UNIT TAB PO SCH (08:27)
[2017-05-14] MEDS: ATORVASTATIN 40 MG TAB PO SCH (08:27)
--- NOTE | 2017-05-14 09:34 | CARDIOLOGY CONSULTATION ---
DATE OF CONSULTATION: 05/14/2017 DATE OF CONSULTATION: 05/14/2017 REQUESTING PHYSICIAN: Candelario Gross M.D. ELECTRONIC COURT RECORDER: Michael Harrell D.O, [facility]. REASON FOR CONSULTATION: ST elevation in the face of a left bundle branch block, question acute coronary syndrome. Ivette is not the greatest historian. The history is obtained from the ER notes as well as the H&P. It sounds like she had an episode of respiratory distress along with fever of 101.6 and cough. She was brought to the Emergency Room where she was found by CAT scan to have a significant pneumonia. Her initial troponin was mildly elevated. She is known to have a chronic left bundle branch block. Her admission EKG from 5:14 p.m. reveals a left bundle branch block with ST elevation, not meeting criteria for an infarct, although the T-waves are biphasic. This is different than her previous baseline EKG which also had lower voltage. EKG was repeated at 2121 last evening, the ST elevation persists, now the T-waves are predominantly negatively inverted across the precordial leads concerning for coronary ischemia. Last night a conversation was had patient and her son as well as her and given her age and the fact that she has some underlying dementia and the fact that she had no chest pain and her troponins were trending down decision was made to treat her medically. This morning she denies any complaints. She is actually frustrated that we are interrupting her breakfast. She has gone down for an echocardiogram on 2 separate occasions and has refused to have an echo completed. She denies chest pain, chest pressure, chest heaviness, shortness of breath. She notes she still has a cough. She denies PND, orthopnea. She has no lower extremity edema. She denies any palpitations or fluttering. She denied fevers or chills at home, although the chart documents she did have fevers. Her appetite is good, her weight has been stable. The rest of review of systems otherwise negative. PAST MEDICAL HISTORY: 1. COPD. 2. Hyperlipidemia. 3. Hypothyroidism. 4. Osteoporosis. 5. Chronic left bundle branch block. SOCIAL HISTORY: She lives at [facility] with her . She is a former smoker. Denies any alcohol. ALLERGIES: CHOCOLATE, LATEX, PEANUTS, DOXYCYCLINE, ADHESIVES AND ALENDRONATE. OUTPATIENT MEDICATIONS: Reviewed. PHYSICAL EXAMINATION: VITAL SIGNS: Heart rate of 81, respirations 22, blood pressure 101/65, sat 98% on 3 liters. GENERAL: She is in no acute distress. HEAD, EYES, EARS, NOSE, AND THROAT: 2+ carotid upstrokes, no carotid bruits. Jugular venous pressure appeared normal. Her sclerae is anicteric. Her hearing is normal. LUNGS: Decreased breath sounds especially in the left base. HEART: Regular rate and rhythm. No appreciable murmurs, rubs or gallops. ABDOMEN: Soft, nontender, nondistended, positive bowel sounds. EXTREMITIES: No clubbing, cyanosis or edema. PSYCHIATRIC: She noted that she just wanted to get back to eating her breakfast. DIAGNOSTIC STUDIES: EKG is discussed above. CT of her chest, no evidence of aortic pathology or pulmonary embolism, patchy consolidative and ground-glass opacities in the left lower lobe with associated bronchial wall thickening consistent with bronchopneumonia. Moderate to severe upper lung emphysema, pulmonary hypertension. LABORATORY STUDIES: First troponin 1.03. Her third is 0.709 and trending down. Sodium 134, potassium 3.9, BUN of 17, creatinine 0.71. Her TSH is normal. Her CBC, hemoglobin is 13.2, platelet count 194. IMPRESSIONS: 1. EKG concerning for ischemia. She does not meet criteria for ST elevation in the face of a left bundle branch block, but the EKG changes are concerning for coronary ischemia. 2. Small troponin elevation. 3. Refusal to have an echocardiogram. 4. Dementia. 5. Left lower lobe pneumonia. 6. Emphysema. As has been previously discussed I agree with medical therapy given her age, the challenges there is not a lot of room to give her medications due to her relatively low blood pressure. She should be on 81 mg of aspirin, heparin can be continued for a total of 48 hours and then discontinued. She is already on a moderate intensity statin therapy and if there is room she should be placed on low dose beta blockers as long as this will not exacerbate her underlying COPD. She looks very comfortable. She does not appear to be in heart failure. She has no anginal symptoms. I would recommend long-term medical therapy only. If there are any additional concerns over the weekend Dr. Hancock is available. Thank you for allowing us to participate in her care.
[2017-05-14 12:10] LABS: PARTIAL THROMBOPLASTIN RATIO 2.1
[2017-05-14] MEDS ORDERED: LEVOFLOXACIN 750 MG TAB PO SCH (16:30)
[2017-05-14] MEDS ORDERED: VANCOMYCIN INJ 750 MG in SODIUM CHLORIDE 0.9% 250ML 250 ML IV SCH (18:00)
[2017-05-15] VITALS (7 sets, daily range): BP systolic 116–148; BP diastolic 67–88; PULSE 64–109; TEMP 36.5–37; O2SAT 94–97
[2017-05-15 06:41] LABS: CREATININE 0.7 mg/dl (0.60-1.20)
[2017-05-15] MEDS: LEVOTHYROXINE 50 MCG TAB PO SCH (07:30)
[2017-05-15] MEDS: HEPARIN 25,000 UNIT/500ML D5W 500 ML IV PRN (07:31)
[2017-05-15 07:37] LABS: HEMATOCRIT 38.8 % (37-47); MEAN CELL VOLUME 95.6 fL (80-100); MEAN CORPUSCULAR HEMOGLOBIN 32.5 pg (25-34); MEAN PLATELET VOLUME 10.2 fL (7.4-10.4); PLATELET COUNT 217 K/uL (130-400); RED BLOOD COUNT 4.06 M/uL (4.2-5.4); WHITE BLOOD COUNT 15.38 K/uL (4.8-10.8)
[2017-05-15] MEDS: ALBUT/IPRATROP 3MG/0.5MG NEB 3 ML VIAL INH SCH ×3 (07:42→15:26)
--- NOTE | 2017-05-15 07:45 | Family Medicine Progress Note ---
Progress Note Date of Service May 15, 2017. Objective Vital Signs Date Time Temp Pulse Resp B/P (MAP) Pulse Ox O2 Delivery O2 Flow Rate FiO2 05/15/17 00:18 37.0 89 18 116/67 (83) 96 2.0 05/15/17 00:00 Nasal Cannula 2.0 05/14/17 20:00 Nasal Cannula 2.0 05/14/17 16:00 Nasal Cannula 2.0 05/14/17 15:57 72 18 96 Nasal Cannula 2.0 05/14/17 15:00 36.6 97 20 123/71 (88) 94 Nasal Cannula 2.0 05/14/17 12:00 36.7 89 16 124/73 (90) 95 Room Air 05/14/17 11:27 83 18 94 Nasal Cannula 2.0 05/14/17 08:00 Nasal Cannula 3.0 05/14/17 08:00 36.5 81 22 101/65 (77) 98 Nasal Cannula 3.0 Resident Tracking Resident Involvement: Resident Care Provided Care Provided: Adult Hospital Medicine
[2017-05-15 07:59] LABS: PARTIAL THROMBOPLASTIN RATIO 2.1
[2017-05-15] MEDS: BUDESONIDE/FORMOTEROL FUMARATE 80/4.5 60 PUFFS/INHALER INH SCH (08:15)
[2017-05-15] MEDS: GLUCOSAMINE SULFATE 500 MG CAP PO SCH (08:43)
[2017-05-15] MEDS: ATORVASTATIN 40 MG TAB PO SCH (08:43)
[2017-05-15] MEDS: CHOLECALCIFEROL 1000 INTER.UNIT TAB PO SCH (08:44)
[2017-05-15] MEDS: MULTIVITAMIN TAB PO SCH (08:44)
[2017-05-15] MEDS ORDERED: LEVOFLOXACIN 750 MG TAB PO SCH (11:00)
[2017-05-15] MEDS ORDERED: LVQ750 PO (16:03)
[2017-05-15] MEDS ORDERED: LPT40 PO (16:03)
--- NOTE | 2017-05-15 16:33 | Discharge Instructions ---
Discharge Instructions Date of Service May 15, 2017. Admission Reason for Admission: Pneumonia Discharge Discharge Diagnosis / Problem: Pneumonia, demand ischemia Discharge Goals Goal(s): Decrease discomfort, Improve disease control, Therapeutic intervention Activity Recommendations Activity Limitations: resume your previous activity . Instructions / Follow-Up Instructions / Follow-Up 89 year old female admitted to hospital with cough, with hypoxia noted in the ED and pneumonia confirmed by CT scan. Started on oxygen via nasal and cannula and empirically on antibiotics. Troponin trended, but peaked at 1, then started downtrending. EKG showed LBBB, which is similar to previous EKG. Patient remained asymptomatic with regards to chest pain. As such, low likelihood of STEMI/NSTEMI, and more likely to be related to demand ischemia. Patient declined echocardiography. Echo from 2014 shows normal EF. Patient deemed to have competence, and it is stated by the that she would not want to have a cardiac catheterization. Cardiology consulted and recommended medical management with heparin, aspirin, statin and beta nataliia. Beta nataliia was not commenced while in hospital due to some variable heart rates, and generalized weakness, but can be considered in the future if parameters permit. Heparin discontinued. On discharge, patient saturating well on room air, lungs clear to auscultation although significant transmitted upper airway sounds. She has ongoing oxygen demands and some generalized weakness. Patient has baseline dementia, but some evidence of delirium commencing. Patient's informed that patient is medically stable but will require several days/weeks to recover to full baseline. Patient's comfortable tending to her needs from their residence in [facility]. On discharge: Community acquired pneumonia with acute hypoxic respiratory failure - Continue oxygen ~2L, keep sats >92%. Wean as tolerated. - Continue levofloxacin (renally dosed) 750mg q2d x 5 doses (total 10 day course ) - Encourage incentive spirometry - Continue home inhalers albuterol and Symbicort - Recommend PT and OT regularly for first 2-4 weeks Demand ischemia - Continue aspirin, atorvastatin. - Add low dose beta nataliia when vitals permit - Sublingual nitroglycerin PRN chest pain Hypothyroidism - Continue Levothyroxine Continue all other home medications as before. Code status: DNR Current Hospital Diet Patient's current hospital diet: AHA Diet (Heart Healthy), Low Sodium Diet (2gm Na) Discharge Diet Recommended Diet: AHA Diet (Heart Healthy) Pending Studies Studies pending at discharge: no Medical Emergencies . Who to Call and When: Medical Emergencies: If at any time you feel your situation is an emergency, please call 911 immediately. . Non-Emergent Contact Non-Emergency issues call your: Primary Care Provider . . "Provider Documentation" section prepared by Vivian Moss. . VTE Core Measure Inpt VTE Proph given/why not?: Other Anticoagulation (heparin infusion), T.E.D. Stockings, SCD's
[2017-05-15] MEDS ORDERED: ASPI81CH2 PO (16:43)
[2017-05-15] MEDS ORDERED: VANCOMYCIN TROUGH ONE (17:30)
--- NOTE | 2017-05-15 22:45 | Discharge Summary ---
Discharge Summary Date of Service May 15, 2017. (Alka. Arias MD) Discharge Summary Admission Date: May 13, 2017 at 20:44 Discharge Date: May 15, 2017 Discharge Disposition: Personal care Principal Diagnosis: community-acquired pneumonia Immunizations: Have You Had Influenza Vaccine: Yes Influenza Vaccine Date: May 20, 2011 History of Tetanus Vaccine?: Unknown History of Pneumococcal: Unknown History of Hepatitis B Vaccine: Unknown Consultations: cardiology (Alka. Arias MD) Medication Reconciliation New Medications: Aspirin (Aspirin) 81 Mg Chw 1 TAB PO DAILY for 30 Days, #30 TAB 3 Refills Atorvastatin (Atorvastatin Calcium) 40 Mg Tab 40 MG PO QAM, #30 TAB 3 Refills Levofloxacin (Levofloxacin) 750 Mg Tab 750 MG PO Q2D@1100, #5 TAB Continued Medications: Acetaminophen (Tylenol) 325 Mg Tab 650 MG PO Q4H PRN for Pain or Fever Albuterol Sulf (Proventil 0.083% 2.5MG/3ML) 2.5 Mg/3 Ml Nebu 2.5 MG INH QID PRN for PNEUMONIA PT STARTED 05/13/17 TO FINISH 05/19/17 Budesonide/Formoterol Fumarate (Symbicort 80/4.5 Inhaler) 120 Puffs/ Aero 2 PUFFS INH BID Cholecalciferol (Vitamin D3) 2,000 Unit Cap 2000 INTER.UNIT PO QAM Dextromethorphan-Guaifenesin ([facility]vs Chest Congestion Plus 5-100 mg/5Ml) 1 Liq Liq 5 ML PO BID PRN for Cough Glucosamine Sulfate (Glucosamine) 500 Mg Cap 500 MG PO QAM Ibandronate Sodium (Ibandronate Sodium) 150 Mg Tab 150 MG PO MONTHLY Levothyroxine Sodium (Levothyroxine Sodium) 50 Mcg Tab 50 MCG PO DAILY Multivitamin (Multivitamin) Tab 1 TAB PO DAILY, 0 Refills Discontinued Medications: Levofloxacin (Levaquin) 500 Mg Tab 500 MG PO DAILY Discharge Exam Patient intermittently confused this morning. She says she slept well and denies acute overnight events. she denies any fever or pain symptoms in her chest or abdomen, and states that she is breathing comfortably with the oxygen. She is having ongoing cough which is nonproductive. This morning she also seems to have lost her voice, which she attributes to having been on the phone and talking to her since the morning. Ambulation has been limited to and from the bathroom, but patient feels she is able to comfortably do so. patient is tolerating diet without nausea or vomiting. Patient denies issues with bowel movements and voiding. ROS is unremarkable except as noted above. Physical Exam: General Appearance: WD/WN, no apparent distress, + pertinent finding (nasal cannula in situ) Eyes: normal inspection ENT: hearing grossly normal, pharynx normal Neck: supple, no adenopathy, no JVD Respiratory/Chest: lungs clear, no respiratory distress, no accessory muscle use, + decreased breath sounds (diffusely), + pertinent finding ( transmitted upper airway sounds but no evidence of wheezing or crackles) Cardiovascular: regular rate, rhythm, no edema, no murmur, normal peripheral pulses Abdomen / GI: normal bowel sounds, non tender, soft Extremities: no calf tenderness, normal capillary refill, no pedal edema, non-tender Neurologic/Psychiatric: alert, normal mood/affect, + disoriented Skin: normal color, warm/dry, no rash (Alka. Arias MD) Hospital Course 89 year old female admitted to hospital with cough, with hypoxia noted in the ED and pneumonia confirmed by CT scan. Started on oxygen via nasal and cannula and empirically on antibiotics. Troponin trended, but peaked at 1, then started downtrending. EKG showed LBBB, which is similar to previous EKG. Patient remained asymptomatic with regards to chest pain. As such, low likelihood of STEMI/NSTEMI, and more likely to be related to demand ischemia. BNP elevated at 6000, CXR showed emphysema and mild subsegmental left basilar atelectasis without acute cardiopulmonary process. Patient declined echocardiography. Echo from 2015 shows normal EF. Patient deemed to have competence, and it is stated by the that she would not want to have a cardiac catheterization. Cardiology consulted and recommended medical management with heparin, aspirin, statin and beta nataliia. Beta nataliia was not commenced while in hospital due to fluctuating heart rates, and generalized weakness, but can be considered in the future if parameters permit and diminished risk of falls. Heparin discontinued. On discharge, patient saturating well on room air, lungs clear to auscultation although significant transmitted upper airway sounds. She has ongoing oxygen demands and some generalized weakness. Patient has baseline dementia, but some evidence of delirium commencing. Patient's informed that patient is medically stable but will require several days/weeks to recover to full baseline. Patient's comfortable tending to her needs from their residence in [facility]. On discharge: Community acquired pneumonia with acute hypoxic respiratory failure, with background COPD - Continue oxygen ~2L, keep sats >92%. Wean as tolerated. - Continue levofloxacin (renally dosed) 750mg q2d x 5 doses (total 10 day course ) - Encourage incentive spirometry - Continue home inhalers albuterol and Symbicort - Recommend PT and OT regularly for first 2-4 weeks Demand ischemia - Continue aspirin, atorvastatin. - Add low dose beta nataliia when vitals and strength permit - Sublingual nitroglycerin PRN chest pain - EKG PRN chest pain Hypothyroidism - Continue Levothyroxine Continue all other home medications as before. Code status: DNR Total Time Spent: Less than 30 minutes This includes examination of the patient, discharge planning, medication reconciliation, and communication with other providers. (Alka. Arias MD) Resident Physician Supervision Note: I interviewed and examined the patient. Discussed with Dr. Arias and agree with findings and plan as documented in the note. Any exceptions or clarifications are listed here: None Documented By: Bean Cervantes appearing more confused. otherwise as above dr arias d/w updated on current condition and considerations on going home -he feels safe with her at home with him in current condition. dr arias also observed pt ambulating vitlas noted nad breathing unlabored lungs clear pneumonia / hypoxia - improving as above dementia w acute metabolic and inpatient related encephalopathy/hospital delirium - anticipate improvement to baseline once home elevated troponin - truly appears to have been demand ischemia related to above -- LBBB chronic, troponins followed much more of a demand ischemia pattern than NSTEMI (and clearly was not STEMI) safe/stable for home on abx and O2, outpt f/u (Bean Cervantes, D.O.) Discharge Instructions Please refer to the electronic Patient Visit Report (Discharge Instructions) for additional information. (Alka. Arias MD) Additional Copies To Tyler Lee Resident Tracking Resident Involvement: Resident Care Provided Care Provided: Adult [facility] Medicine (Alka. Arias MD)
== END 2017-05-15 16:55 | disposition home or self-care (01) | DRG 189 ==
LOC: EDBD 16:39 → C.EDB 16:40 → C.2T 20:44 → ENRESERV 21:18 → CANRESERV 21:18 → ENRESERV 23:32 → CANRESERV 23:32 → ENRESERV 23:46 → C.4E 05-14 15:10
PROVIDERS: ADMIT Student in an Organized Health Care Education/Training Program; ATTEND Family Medicine
DX: J96.91 Respiratory failure, unspecified with hypoxia (principal); J44.0 Chronic obstructive pulmonary disease with (acute) lower respiratory infection; J18.9 Pneumonia, unspecified organism; I24.8 Other forms of acute ischemic heart disease; E78.5 Hyperlipidemia, unspecified; E03.9 Hypothyroidism, unspecified; Z87.891 Personal history of nicotine dependence; I44.7 Left bundle-branch block, unspecified; M81.0 Age-related osteoporosis without current pathological fracture; F03.90 Unspecified dementia, unspecified severity, without behavioral disturbance, psychotic disturbance, mood disturbance, and anxiety